=== PATIENT | female | born 1990 | race American Indian/Alaskan Native ===

== ENCOUNTER 2019-09-28 18:39 | Emergency (ER) | payer SELFPAY ==
[2019-09-28 21:44] LABS: Hematocrit 43.2 % (30.3-42.9); Hemoglobin 14.1 gm/dl (10.1-14.3); Mean Corpuscular HGB Conc 33 % (30-34); Mean Corpuscular Volume 90 fl (79-97); Platelet Count 317 K/mm3 (140-440); Red Blood Count 4.78 M/mm3 (3.65-5.03); Red Cell Distribution Width 13.6 % (13.2-15.2)
[2019-09-28 22:08] LABS: BUN/Creatinine Ratio 11; Blood Urea Nitrogen 10 mg/dL (7-17); Calcium 8.6 mg/dL (8.4-10.2); Hemolysis Index 59
[2019-09-28 23:18] LABS: Bacteria,Urine 1+ /HPF (Negative); Bilirubin,Urine NEG (Negative); Blood,Urine NEG (Negative); Color,Urine Yellow (Yellow); Mucus,Urine 2+ /HPF; Protein,Urine <15 mg/dL mg/dL (Negative); WBC,Urine < 1.0 /HPF (0.0-6.0)
[2019-09-28 23:19] LABS: HCG Qualitative,Urine Negative (Negative)
--- NOTE | 2019-09-29 03:27 | Emergency Department Report ---
ED General Adult HPI - General Chief complaint: Syncope Stated complaint: PASSING OUT/WEAKNESS/N Time Seen by Provider: 09/29/19 03:03 Source: patient Mode of arrival: Ambulatory Limitations: No Limitations - History of Present Illness Initial comments: 28-year-old female sent emerge department complaining of a pain for lump to the right neck that has been present for about 1 year but pain has emerged over the last couple weeks. [place] [facility] [place] and does not have a primary care provider in his area and presents emergency department seeking further evaluation and treatment options. She states that she was also feeling little bit lightheaded on yesterday while she was at [employer] which occurred right after she had donated plasma. Reports no chest pain or palpitation. No hemoptysis no hematemesis no fever, chills, sweats. No trauma. Radiation: non-radiation Severity scale (0 -10): 10 Quality: dull Improves with: none Worsens with: none Associated Symptoms: denies: cough, diaphoresis, syncope Treatments Prior to Arrival: none - Related Data Previous Rx's Medication Instructions Recorded Last Taken Type Amoxicillin [Amoxicillin TAB] 875 mg PO BID #20 tablet 09/29/19 Unknown Rx Allergies Allergy/AdvReac Type Severity Reaction Status Date / Time No Known Allergies Allergy Verified 09/28/19 19:55 ED Review of Systems ROS: Stated complaint: PASSING OUT/WEAKNESS/N Other details as noted in HPI Comment: All other systems reviewed and negative ED Past Medical Hx - Past Medical History Previous Medical History?: No - Surgical History Past Surgical History?: Yes Additional Surgical History: right ankle - Social History Smoking Status: Current Every Day Smoker Substance Use Type: Alcohol - Medications Home Medications: Home Medications Medication Instructions Recorded Confirmed Last Taken Type Amoxicillin [Amoxicillin TAB] 875 mg PO BID #20 tablet 09/29/19 Unknown Rx ED Physical Exam - General Limitations: No Limitations General appearance: alert, in no apparent distress - Head Head exam: Present: atraumatic, normocephalic - Eye Eye exam: Present: normal appearance - ENT ENT exam: Present: mucous membranes moist, other (Mild erythema) - Neck Neck exam: Present: normal inspection, lymphadenopathy (To the right now tenderness with palpation.) - Respiratory Respiratory exam: Present: normal lung sounds bilaterally. Absent: respiratory distress - Cardiovascular Cardiovascular Exam: Present: regular rate, normal rhythm. Absent: systolic murmur, diastolic murmur, rubs, gallop - GI/Abdominal GI/Abdominal exam: Present: soft, normal bowel sounds - Extremities Exam Extremities exam: Present: normal inspection - Back Exam Back exam: Present: normal inspection - Neurological Exam Neurological exam: Present: alert, oriented X3 - Psychiatric Psychiatric exam: Present: normal affect, normal mood - Skin Skin exam: Present: warm, dry, intact, normal color. Absent: rash ED Course Vital Signs 09/28/19 09/28/19 09/29/19 19:52 21:01 02:06 Temperature 97.9 F 97.6 F Pulse Rate 60 60 52 L Respiratory 16 18 16 Rate Blood Pressure 114/63 114/83 119/67 O2 Sat by Pulse 100 100 100 Oximetry ED Medical Decision Making - Lab Data Result diagrams: 09/28/19 21:18 09/28/19 21:18 - Medical Decision Making 28-year-old female with what appears to be a chronic lymphadenopathy to the right cervical chain. No known history any lymphomas although that is on the differential. Does have a mild sore throat will cover with a round of antibiotics for 7 to 10 days and have her follow-up with primary care provider to reevaluate this mass. Does not appear to be cystic in nature. No cellulitis no no discharge voice speech normal Critical care attestation.: If time is entered above; I have spent that time in minutes in the direct care of this critically ill patient, excluding procedure time. ED Disposition Clinical Impression: Adenopathy, cervical Disposition: DC-01 TO HOME OR SELFCARE Is pt being admited?: No Does the pt Need Aspirin: No Condition: Stable Instructions: Lymphadenopathy (ED) Prescriptions: Amoxicillin [Amoxicillin TAB] 875 mg PO BID #20 tablet Referrals: PRIMARY CAREMD [Primary Care Provider] - 3-5 Days EFRAIN THAO MD [Staff Physician] - 3-5 Days
[2019-09-29 05:35] VITALS: BP 119/56
== END 2019-09-29 03:44 | disposition home or self-care (01) ==
LOC: ED 18:39
DX: R59.0 Localized enlarged lymph nodes (principal); F17.200 Nicotine dependence, unspecified, uncomplicated; Z98.890 Other specified postprocedural states; Z79.2 Long term (current) use of antibiotics
CPT/HCPCS: 36415; 80048; 81001; 81025; 85027